=== PATIENT | male | born 1960 | race Caucasian/White ===

== ENCOUNTER → 2020-10-08 | Outpatient (CLI) | payer BC, OTHER ==
[~2020-10-08] VITALS: Ht 167.6 cm; Wt 90.7 kg
[~2020-10-08] MED LIST: BYSTOLIC10 MG PO; EDARBYCLOR 40-1 EAC1 PO; LIPITOR 20 MG T20 M1 PO
--- NOTE | ~2020-10-08 | HPC ---
[facility] [place] [address] [place] [address] PAIN MANAGEMENT CONSULTATION Name: LEI MCCURDY Room #: REG SARA PotterTomasaRohanTomasa#: [id number] Admission: 10/08/20 Attend Phys: Wolf France DO Discharge: Date of : 56 Report #: [id number] THIS REPORT FOR: cc: Ephraim Wiseman MD,Wolf Richards MD, DO ~ CC: Luis France DATE OF SERVICE: 10/08/2020 CHIEF COMPLAINT: Low back pain, right lower extremity pain with paresthesias. HISTORY OF PRESENT ILLNESS: As you know, the patient is a very pleasant 59-year-old male who reports longstanding history of low back pain and progressively worsening right lower extremity pain with paresthesias. He states his pain began on 11/29/2016. Denies any injury or trauma that may have led to symptom development. He has trialled rovt-lwu-[id number] medications without benefit. He continues to participate in physician-directed physical therapy program and exercise program, but even with this, his pain remains at a level of up to 8-9/10. He sought further evaluation through his primary care physician who sent him for MRI of the lumbar spine, the findings show multilevel degenerative changes throughout the lumbar region, greatest at the L4-L5 level with moderate central canal stenosis and neural foraminal narrowing. Given the findings of the MRI, the patient was then referred to our clinic to discuss interventional therapies. The patient indicates today pain is periodic. He describes the pain as shooting, sharp, intermittent numbness and tingling. He is placing his current pain today anywhere up to 9/10 depending on activity. Daily average is up to 9/10 depending on his level of activity during the day. Worst pain has been is 9/10. The patient states pain is exacerbated with standing and walking on hard surfaces. He notes improvement in symptoms with sitting, stretching and the use of vtmn-daj-kmmbqzo Aleve therapy. He has been referred to our service to discuss treatment options for suspected lumbar radiculopathy. PAST MEDICAL HISTORY: 1. Hypertension. 2. Dyslipidemia. 3. Osteoarthritis. PAST SURGICAL HISTORY: 1. Bilateral shoulder surgeries approximately 15 years ago. 2. Left total knee arthroplasty in 2014. [address] [address] PAIN MANAGEMENT CONSULTATION Name: LEI MCCURDY David Room #: REG [facility] Zenaida#: [id number] Admission: 10/08/20 Attend Phys: Wolf France DO Discharge: Date of : 56 Report #: [id number] SOCIAL HISTORY: The patient denies tobacco, IV or illicit drug use. Admits to approximately 5 alcohol beverages per week. He is retired. He is not receiving workmen's compensation nor is he trying to obtain discrete benefits. He is not in litigation in regards to pain. He is unaccompanied at today's visit. REVIEW OF SYSTEMS: Positive for tinnitus, chronic sinus problems with rhinitis, low back pain, right lower extremity pain with paresthesias. All other review of systems negative per 12-point review of systems other than those listed in history of present illness. Pain impact score 5 of 70 indicating mild interference of daily activities secondary to pain. ALLERGIES: No known drug allergies. CURRENT MEDICATIONS: Atorvastatin 20 mg once a day, Edarbyclor 40/25 mg once a day, Bystolic 10 mg per day. IMAGING: MRI lumbar spine obtained on 09/03/2020 shows L1-L2 unremarkable. L2-L3 shows mild facet arthropathy. No central canal or neural foraminal stenosis. L3-L4 shows mild facet arthropathy, ligamentum flavum hypertrophy leading to minimal inferior left neural foraminal narrowing. AP canal is mildly reduced to 9 mm. L4-L5 degenerative disk disease with bulging disk material, ligamentum flavum hypertrophy, moderate facet hypertrophy resulting in moderate central canal stenosis and subtle right neural foraminal narrowing. Thecal sac measures 7 mm. L5-S1, moderate facet hypertrophy without neural foraminal narrowing or central canal stenosis. Central canal measures 1.2 cm. PHYSICAL EXAMINATION: VITAL SIGNS: Blood pressure 152/95, pulse 60, respiratory rate 16 and unlabored. The patient is 97% on room air. Height 5 feet 6 inches tall, weight 200 pounds and BMI calculated at 32.3. GENERAL: Well-developed, well-nourished, well-hydrated 59-year-old male appearing his stated age, placing current pain score up to 8-9/10 depending on activity. HEENT: Normocephalic, atraumatic. Pupils are round and reactive. There is no anisocoria. There is no dilation or constriction of the pupils. LUNGS: Clear, no wheeze, rhonchi or rales. CARDIOVASCULAR: Regular. No appreciable gallop, no rub. ABDOMEN: Soft, nontender, nondistended, normoactive bowel sounds. EXTREMITIES: Show no clubbing, no cyanosis, no edema. MUSCULOSKELETAL: Lower extremity strength appears symmetrical 5/5. Muscle bulk and tone is equal and symmetrical comparing left lower extremity to right. Seated straight leg raising negative. Supine straight leg raising positive on the right at about 70-degree angle. Ankle clonus negative. Babinski is negative. The patient is able to toe walk and heel walk without complications. [address] [address] PAIN MANAGEMENT CONSULTATION Name: LEI MCCURDY Room #: REG [facility]#: [id number] Admission: 10/08/20 Attend Phys: Wolf France DO Discharge: Date of : 56 Report #: [id number] Lumbar provocation testing is met with mild axial back pain consistent with facet arthropathy. There is no radiation of symptoms in a dermatomal distribution with these maneuvers. ASSESSMENT: 1. Symptomatic lumbar radiculopathy. 2. Displacement of lumbar intervertebral disk with radiculopathy. 3. Central canal stenosis of lumbar spine. 4. Neural foraminal stenosis of lumbar spine. 5. Facet arthropathy of the lumbar spine. 6. Lumbar degeneration. PLAN: 1. Based on today's physical exam and history the patient has provided, the description the patient uses in regards to pain as well as the distribution of symptoms he is experiencing pain upon, the likely source of the patient's pain is a lumbar radiculopathy. The patient and I discussed at length the findings of his MRI, which shows changes at the L4-L5 level consistent with the patient's symptoms with radiation down the right leg. After a very long discussion of the findings of the MRI that lasted over 23 minutes of time, we then correlated the symptoms to his current presentation considering the L4-L5 level as the source of his symptoms at present. We then discussed the treatment options. We discussed physical therapy, stretching exercises and core strengthening techniques. The patient is currently undergoing physical stretching exercises, and routines at home that are physician-directed by his PCP. We discussed medication management, adding neuropathic pain medication such as amitriptyline, nortriptyline, Cymbalta, Lyrica or gabapentin. We discussed lumbar epidural injections under fluoroscopic guidance for which the patient was referred to our clinic. We also discussed surgical options with the patient, which would require decompression of the L4-L5 level. After reviewing risks and benefits of all proposed treatment options, the patient chose to move forward with a lumbar epidural injection under fluoroscopic guidance. 2. The patient was advised due to third libertarian payer restrictions, authorization would have to be obtained before the patient could undergo a lumbar epidural injection. Authorization could take anywhere from 4-7 working days. We will begin this process immediately. We have plans to see the patient back in followup visit next week to undergo lumbar epidural injection as requested. 3. No medication changes made at today's visit. The patient will continue current medical therapy as prior prescribed. 4. We will see the patient back in followup visit once we have achieved authorization for the patient to undergo the first in a series of lumbar epidural injections to address lumbar radiculopathy. 5. We wish to thank the referring physician, Dr. Wiseman for the opportunity to see the patient in consultation. We will keep you apprised of his response to treatment as we [place] [address] PAIN MANAGEMENT CONSULTATION Name: KAZLEI Hernandez Room #: REG SARA Estevez#: [id number] Admission: 10/08/20 Attend Phys: Wolf France DO Discharge: Date of : 56 Report #: [id number] Again, we wish to thank you for the opportunity to see the patient in consultation. By: [id number] Wolf France DO /nt
[2020-10-08 10:40] VITALS: BP 152/95
--- NOTE | 2020-10-08 10:48 | NUR ---
Answering YES to this query will charge for the Pneumococcal Vaccine. Please answer YES ONLY if administering vaccine at this time.
--- NOTE | 2020-10-08 10:51 | NUR ---
Pain Clinic Assessment: 1. History of Osteoarthritis: SPINE History of Rheumatoid Arthritis: Not Applicable 2. Height: 5 ft. 6 in. 167.6 cm. Weight: 200.0 lb. oz. 90.720 kg. Patient's BMI: 32.3 3. Vital Signs: BP: 152/95 Pulse: 60 Resp: 16 Temp: 02 Sat: 97 ECG Mon: 4. Pain Intensity: 8-9 0-sitting 5. Fall Risk: Dizziness: N Needs help standing or walking: N Fallen in the last 3 months: N Fall risk comments: 6. Patient on Blood Thinner: None 7. History of Hypertension: Y 8. Opioid Therapy greater than 6 weeks: N Opiate Contract Signed: 9. Risk Assessment Tool Provided: low-0 10. Functional Assessment Tool: 11. Recreational Drug Use: Never Drug Type: Tobacco Use: Never Smoker Tobacco Type: Amount or Packs/day: How Many Years: Alcohol Use: Yes Frequency: Weekly Quant: 4-5 BEERS
== END ==
LOC: PAIN 06:56
PROVIDERS: ATTEND Anesthesiology Pain Medicine
DX: M51.16 Intervertebral disc disorders with radiculopathy, lumbar region (principal); M79.604 Pain in right leg; R20.2 Paresthesia of skin; M48.061 Spinal stenosis, lumbar region without neurogenic claudication; I10 Essential (primary) hypertension; M19.90 Unspecified osteoarthritis, unspecified site; Z79.899 Other long term (current) drug therapy

== ENCOUNTER → 2020-10-15 | Outpatient (CLI) | payer BC, OTHER ==
[~2020-10-15] VITALS: Ht 167.6 cm; Wt 101.2 kg
[2020-10-15 11:06] VITALS: BP 156/96
--- NOTE | 2020-10-15 11:19 | NUR ---
Pain Clinic Assessment: 1. History of Osteoarthritis: SPINE History of Rheumatoid Arthritis: Not Applicable 2. Height: 5 ft. 6 in. 167.6 cm. Weight: 223.0 lb. oz. 101.152 kg. Patient's BMI: 36.0 3. Vital Signs: BP: 156/96 Pulse: 60 Resp: 16 Temp: 02 Sat: 100 ECG Mon: 4. Pain Intensity: 0 TODAY 5. Fall Risk: Dizziness: N Needs help standing or walking: N Fallen in the last 3 months: N Fall risk comments: 6. Patient on Blood Thinner: None 7. History of Hypertension: Y 8. Opioid Therapy greater than 6 weeks: N Opiate Contract Signed: 9. Risk Assessment Tool Provided: low-0 10. Functional Assessment Tool: 11. Recreational Drug Use: Never Drug Type: Tobacco Use: Never Smoker Tobacco Type: Amount or Packs/day: How Many Years: Alcohol Use: Yes Frequency: Weekly Quant: 4-5 BEERS
--- NOTE | 2020-10-16 12:43 | HPC ---
[facility] [address] [place] [address] PAIN MANAGEMENT CONSULTATION Name: LEI MCCURDY Room #: REG SARA GiovannaRohanTomasa#: [id number] Admission: 10/15/20 Attend Phys: Wolf France DO Discharge: Date of : 56 Report #: [id number] THIS REPORT FOR: cc: Ephraim Wiseman MD, Christopher B. MD Johnson, James E. DO ~ DATE OF SERVICE: 10/15/2020 REFERRING PHYSICIAN: Dr. Ephraim Wiseman CHIEF COMPLAINT: Low back pain and right lower extremity pain with paresthesias. HISTORY OF PRESENT ILLNESS: As you know, the patient is a very pleasant 59-year-old male with a longstanding history of low back pain and progressively worsening right lower extremity pain. The patient states his pain began 11/29/2016. He trialled kfow-zfx-nctnooc medications, rest and relaxation but unfortunately, his symptoms did not improve. We saw the patient per the request of Dr. Wiseman on 10/08/2020 where he was diagnosed with symptomatic lumbar radiculopathy due to the displacement of a lumbar intervertebral disk, leading to central canal stenosis and foraminal stenosis. He was established at today's appointment to undergo a lumbar epidural injection after we discussed the various treatment options we had, to address his symptoms including medication management, spinal cord stimulator and surgical options in conjunction with the epidural injections. He made today's appointment to undergo the first in a series of epidural injections. He was able to clear his schedule to be able to go home and take it easy after the procedure today. The patient is placing his current pain at a level of 3-4/10 depending on activity. ALLERGIES: No known drug allergies. CURRENT MEDICATIONS: Atorvastatin, Edarbyclor and Bystolic. SOCIAL HISTORY: The patient denies tobacco, IV or illicit drug use. Admits to occasional alcohol beverage. 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 He is unaccompanied today. IMAGING: No new imaging available. PHYSICAL EXAMINATION: VITAL SIGNS: Blood pressure 156/96, pulse is 60, respiratory rate 16 and unlabored. The patient is 100% on room air. Height 5 feet 6 inches tall, weight 223 pounds. BMI calculated at 36. GENERAL: Well-developed, well-nourished, well-hydrated, 59-year-old male, [address] [address] PAIN MANAGEMENT CONSULTATION Name: LEI MCCURDY Room #: REG CLI [facility]#: [id number] Admission: 10/15/20 Attend Phys: Wolf France DO Discharge: Date of : 56 Report #: [id number] appearing stated age. He is in no acute distress, awake, alert and oriented x 3. Current pain score anywhere from 3-4/10. HEENT: Normocephalic, atraumatic. Pupils equal, round and reactive. EXTREMITIES: Show no clubbing, no cyanosis. No appreciable edema. MUSCULOSKELETAL: Lower extremity strength remains symmetrical again today at 5/5. Muscle bulk and tone is symmetrical in comparing the left lower extremity to the right. Seated straight leg raising negative. Supine straight leg raising positive on the right, again at about 60-70 degrees angle. Ankle clonus negative. Babinski is negative. His gait is mildly antalgic, favoring the right lower extremity. ASSESSMENT: 1. Symptomatic lumbar radiculopathy. 2. Central canal stenosis of lumbar spine. 3. Neural foraminal stenosis of the lumbar spine. 4. Displacement of lumbar intervertebral disk with radiculopathy. 5. Facet arthropathy of the lumbar spine. 6. Lumbar degeneration. PLAN: 1. The patient has returned today in followup visit to undergo lumbar epidural injection under fluoroscopic guidance. He reports pain level up to 3-4/10 today. He has been able to clear his schedule for this afternoon, to be able to go home and take it easy after the injection. We have noted improved efficacy with epidural injections when the patient is allowed the first 24 hours of limited activity. The patient returns for the first in the series of lumbar epidural injections. The patient has been advised the risks and benefits of a lumbar epidural injection. These risks include but are not necessarily limited to bleeding, bruising, infection, worsening pain, no relief of pain and also risk of temporary or permanent muscle weakness, temporary or permanent nerve damage, possible paralysis and . The patient states he understood and wished to proceed. 2. No medication changes made at today's visit. The patient will continue current medical therapy as prior prescribed. 3. We plan to see the patient back in followup visit in approximately 30 days. At that time, review the efficacy of today's epidural injection and determine the next in the series of epidural injections will be recommended. PROCEDURE NOTE DESCRIPTION OF PROCEDURE: An L5-S1, right paramedian epidural steroid injection under fluoroscopic guidance. This is the 1st procedure of the 1st series that the patient is undergoing. After obtaining written consent, the patient was taken back to the fluoroscopy [address] [address] PAIN MANAGEMENT CONSULTATION Name: LEI MCCURDY Room #: REG SARA Estevez#: [id number] Admission: 10/15/20 Attend Phys: Wolf France DO Discharge: Date of : 56 Report #: [id number] suite, placed in a prone position with pillow under the abdomen to decrease lumbar lordosis. The skin overlying the lumbosacral area was then prepped and draped in aseptic fashion. The L5-S1 vertebral interspace was then identified by AP fluoroscopy. The skin and subcutaneous tissue overlying the target site of injection was anesthetized with 3 mL 1% lidocaine. A 20-gauge, 3-1/2 inch Tuohy needle was then advanced under fluoroscopic guidance towards the epidural space using a right paramedian approach. The epidural space was identified using loss of resistance to air technique. After negative aspiration for heme or cerebrospinal fluid, a total of 1 mL of Omnipaque was injected. A lumbar epidurogram was confirmed using both AP and lateral fluoroscopy. After negative aspiration for heme or cerebrospinal fluid, 5 mL of a solution containing 2 mL, 40 mg/mL, 80 mg total of triamcinolone along with 3 mL of lidocaine, 1% was injected in increments. Contrast spread was noted in the post-epidural space. The needle was then retracted approximately half way and needle tract flushed with 1 mL of 1% of lidocaine. Needle was then removed. There were no apparent sensory or motor deficits in the lower extremity following the procedure. A sterile bandage was placed over the injection site. The heart rate, pulse, oximetry and blood pressure were continuously monitored after the procedure. There were no apparent complications. The patient tolerated the procedure well and was carefully escorted to the recovery room in stable condition. There were no apparent complications. After meeting discharge criteria, the patient was then discharged home. <ELECTRONICALLY SIGNED> By: Wolf France DO 10/16/20 [id number] Wolf France DO /nt
== END | disposition home or self-care (01) ==
LOC: PAIN 06:54
PROVIDERS: ATTEND Anesthesiology Pain Medicine
DX: M51.16 Intervertebral disc disorders with radiculopathy, lumbar region (principal); M47.26 Other spondylosis with radiculopathy, lumbar region; M48.061 Spinal stenosis, lumbar region without neurogenic claudication; G89.29 Other chronic pain; Z98.890 Other specified postprocedural states; Z79.899 Other long term (current) drug therapy